=== PATIENT | male | born 1980 | race Caucasian/White ===

== ENCOUNTER → 2021-07-07 | Outpatient (CLI) | payer OTHER | LOC: KOH-I 10:05 | DX: M79.672 Pain in left foot (principal); M79.671 Pain in right foot; M19.071 Primary osteoarthritis, right ankle and foot | CPT/HCPCS: 73630 ==

== ENCOUNTER 2021-10-26 10:34 | Inpatient (IN) | payer OTHER ==
[~2021-10-26] VITALS: Ht 190.5 cm; Wt 158.8 kg
[~2021-10-26 10:34] MED LIST: TYLENOL 8 HOUR650 MG PO; ZOFRAN 4 MG TAB4 MG PO
[2021-10-26 11:28] LABS: HEMOGLOBIN 14.8 gm/dl (14.0-17.5); RED BLOOD COUNT 5.23 M/UL (4.20-5.50); WHITE BLOOD COUNT 5.7 K/UL (4.5-11.0)
[2021-10-26 11:48] LABS: BUN/CREATININE RATIO 12 (0-10)
[2021-10-26] MEDS ORDERED: MONTELUKAST SOD10 MG PO (15:00)
[2021-10-26] MEDS ORDERED: METOPROLOL SUCC25 MG PO (15:00)
[2021-10-26] MEDS ORDERED: GABAPENTIN300 MG PO (15:00)
[2021-10-26] MEDS ORDERED: GABAPENTIN600 MG PO (15:00)
[2021-10-26] MEDS ORDERED: ALLOPURINOL100 MG PO (15:01)
[2021-10-26] MEDS ORDERED: LISINOPRIL40 MG PO (15:01)
[2021-10-26] MEDS ORDERED: PROAIR HFA8.5 GM INH (15:01)
[2021-10-26] MEDS ORDERED: METFORMIN HCL500 MG PO (15:01)
[2021-10-26] MEDS ORDERED: ATORVASTATIN CA10 MG PO (15:01)
[2021-10-26] MEDS ORDERED: PRADAXA150 MG PO (15:02)
[2021-10-26] MEDS ORDERED: VITAMIN D21250 MCG PO (15:02)
[2021-10-26] MEDS ORDERED: CLARITIN10 MG PO (15:02)
[2021-10-27 07:26] LABS: HEMOGLOBIN 14.1 gm/dl (14.0-17.5); RED BLOOD COUNT 5.25 M/UL (4.20-5.50); WHITE BLOOD COUNT 5.4 K/UL (4.5-11.0)
[2021-10-27 07:58] LABS: BUN/CREATININE RATIO 10 (0-10)
[2021-10-28 06:26] LABS: RED BLOOD COUNT 5.07 M/UL (4.20-5.50)
[2021-10-28 06:57] LABS: BUN/CREATININE RATIO 10 (0-10)
--- NOTE | 2021-10-29 10:40 | NUR ---
pt returned from [employer]orer, vss, negative cath per nursing report.
[2021-10-29] MEDS ORDERED: PROTONIX40 MG PO (12:00)
--- NOTE | 2021-10-29 14:55 | NUR ---
pt having increased pain and swelling at cath site will notify transportation driver who perfomed cath and follow given orders.
--- NOTE | 2021-10-29 17:09 | NUR ---
ultrasound complete awaiting official reading of ultrasound, increased swelling noted notified cardiology.
--- NOTE | 2021-10-29 17:40 | NUR ---
notified dr. hickman and dr. jennings of positive distal radial artery occlusion, cancelled discharge of patient will follow given orders.
--- NOTE | 2021-10-30 09:04 | NUR ---
PATIENT INFORMED ME THAT A BLUEPRINT ENGINEER WAS IN TO SEE THEM AND INFORMED THEM THE PATIENT WOULD GET TO GO HOME BUT DIDNT LAY OUT A PLAN THAT MADE THEM FEEL SAFE ENOUGH TO GO HOME. I INFORMED THEM I WOULD CALL THE DR AND MAKE THEM AWARE.
--- NOTE | 2021-10-30 09:51 | NUR ---
CALLED DR FLORES AND HE SAID WE COULD MOVE UP THE CARDIOLOGY APPT TO 1 WEEK INSTEAD OF 2 AND THAT OTHER THAN THAT HE STILL FELT LIKE THE PATIENT COULD BE DISCHARGED HOME . I THEN CALLED DR WILKINS AND HE SAID HE WAS ON HIS WAY AND WOULD ADDRESS THAT WHEN HE GOT HE THAT HE WAS ON HIS WAY.
== END 2021-10-30 16:00 | disposition home or self-care (01) | DRG 287 ==
LOC: ER1 10:34 → MED SURG 4 14:31 → CDU 14:31 → MED SURG 4 23:51
PROVIDERS: Emergency Medicine; Internal Medicine; Physician Assistant Medical; ADMIT Internal Medicine
PROC: B24BZZZ Ultrasonography of Heart with Aorta (ICD-10-PCS; principal; 2021-10-27)
PROC: 4A023N7 Measurement of Cardiac Sampling and Pressure, Left Heart, Percutaneous Approach (ICD-10-PCS; 2021-10-29)
PROC: B2111ZZ Fluoroscopy of Multiple Coronary Arteries using Low Osmolar Contrast (ICD-10-PCS; 2021-10-29)
DX: R07.89 Other chest pain (principal); D68.51 Activated protein C resistance; Z68.41 Body mass index [BMI] 40.0-44.9, adult; M10.9 Gout, unspecified; I73.9 Peripheral vascular disease, unspecified; E11.51 Type 2 diabetes mellitus with diabetic peripheral angiopathy without gangrene; I10 Essential (primary) hypertension; I77.1 Stricture of artery; E66.01 Morbid (severe) obesity due to excess calories; E11.40 Type 2 diabetes mellitus with diabetic neuropathy, unspecified; E78.5 Hyperlipidemia, unspecified; F41.9 Anxiety disorder, unspecified; Z86.718 Personal history of other venous thrombosis and embolism; Z90.49 Acquired absence of other specified parts of digestive tract; Z90.89 Acquired absence of other organs; Z98.890 Other specified postprocedural states; Z86.711 Personal history of pulmonary embolism; Z82.49 Family history of ischemic heart disease and other diseases of the circulatory system; Z80.3 Family history of malignant neoplasm of breast; Z83.3 Family history of diabetes mellitus; Z79.84 Long term (current) use of oral hypoglycemic drugs; Z95.828 Presence of other vascular implants and grafts; Z79.899 Other long term (current) drug therapy
CPT/HCPCS: ECHO; 36415; 71045; 78452; 80048; 80053; 80061; 82550; 82553; 82962; 83036; 83735; 84484; 85025; 85027; 85379; 86140; 93005; 93017; 93306; 93931; 94760; 96374; 96375; 99152; 99153; 99285; A9502; C1769; C1894; C9113; G0378; J1644; J2250; J2270; J2405; J2785; J3010; J7040; Q9957; Q9967

== ENCOUNTER 2021-11-06 11:15 | Emergency (ER) | payer OTHER ==
[~2021-11-06 11:15] MED LIST changes: +ALLOPURINOL100 MG PO; +ATORVASTATIN CA10 MG PO; +CLARITIN10 MG PO; +GABAPENTIN300 MG PO; +GABAPENTIN600 MG PO; +LISINOPRIL40 MG PO; +METFORMIN HCL500 MG PO; +METOPROLOL SUCC25 MG PO; +MONTELUKAST SOD10 MG PO; +PRADAXA150 MG PO; +PROAIR HFA8.5 GM INH; +PROTONIX40 MG PO; +VITAMIN D21250 MCG PO
[2021-11-06] MEDS ORDERED: XARELTO15 MG PO (13:31)
[2021-11-06] MEDS ORDERED: PERCOCET 5-3251 EACH PO (13:31)
== END 2021-11-06 14:30 | disposition home or self-care (01) ==
LOC: ER1 11:15
DX: I70.208 Unspecified atherosclerosis of native arteries of extremities, other extremity (principal); Z79.01 Long term (current) use of anticoagulants
CPT/HCPCS: 93931; 99285

== ENCOUNTER → 2021-11-24 | Outpatient (CLI) | payer OTHER ==
[~2021-11-24] MED LIST changes: +PERCOCET 5-3251 EACH PO; +XARELTO15 MG PO
== END ==
LOC: EXRD 13:30
DX: R80.9 Proteinuria, unspecified (principal); K76.0 Fatty (change of) liver, not elsewhere classified
CPT/HCPCS: 76775